=== PATIENT | male | born 1945 | race Caucasian/White ===

== ENCOUNTER → 2018-10-07 | Outpatient (CLI) | payer MEDICARE | END | disposition home or self-care (01) | LOC: PCVCCLINIC 16:02 | PROVIDERS: ATTEND Internal Medicine Cardiovascular Disease | DX: I25.10 Atherosclerotic heart disease of native coronary artery without angina pectoris (principal); E11.8 Type 2 diabetes mellitus with unspecified complications; E78.00 Pure hypercholesterolemia, unspecified; I10 Essential (primary) hypertension; I21.3 ST elevation (STEMI) myocardial infarction of unspecified site; Z91.041 Radiographic dye allergy status | CPT/HCPCS: 36415; 80061; 93005; G0463 ==

== ENCOUNTER → 2018-11-24 | Outpatient (CLI) | payer MEDICARE | END | disposition home or self-care (01) | LOC: PCVCCLINIC 15:23 | PROVIDERS: ATTEND Internal Medicine Cardiovascular Disease | DX: I25.10 Atherosclerotic heart disease of native coronary artery without angina pectoris (principal); E78.5 Hyperlipidemia, unspecified; I24.9 Acute ischemic heart disease, unspecified; E11.9 Type 2 diabetes mellitus without complications; Z79.4 Long term (current) use of insulin; I10 Essential (primary) hypertension; R60.9 Edema, unspecified; Z79.899 Other long term (current) drug therapy; Z88.8 Allergy status to other drugs, medicaments and biological substances | CPT/HCPCS: 36415; 80061; 93005; G0463 ==

== ENCOUNTER → 2019-03-05 | Outpatient (CLI) | payer MEDICARE ==
[~2019-03-05] MED LIST: REGADENOSON 0.4 MG/5 ML DISP.SYRIN. IV ONE
--- NOTE | 2019-03-05 12:43 | PCVCIMAG ---
APPROVED REPORT Study performed: 03/05/2019 07:47:13 EXAM: Comprehensive 2D, Doppler, and color-flow Echocardiogram Patient Location: Echo lab Status: routine BSA: 2.73 HR: 71 bpmBP: 116/64 mmHg Rhythm: NSR Other Information Study Quality: Fair Technically limited study due to lung disease and body habitus. Risk Factors: Cardiac Risk Factors: HTN Indications Diabetes CAD obesity, inferior NM 2D Dimensions IVSd: 13.73 (7-11mm) LVDd: 41.03 mm PWd: 13.33 (7-11mm) LVDs: 30.81 (25-40mm) Left Atrium: 44.98 (27-40mm) Aortic Root: 35.63 mm LV Single Plane 4CH: 50.31 % LV Single Plane 2CH: 49.49 % Biplane EF: 50.4 % Volumes Left Atrial Volume (Systole) Single Plane 4CH: 93.18 mLSingle Plane 2CH: 91.14 mL LA ESV Index: 34.00 mL/m2 Aortic Valve AoV Peak Devang.: 1.69 m/s AO Peak Gr.: 11.46 mmHgLVOT Max P.11 mmHg LVOT Max V: 0.83 m/s Mitral Valve E/A Ratio: 1.4 MV Decel. Time: 271.35 ms MV E Max Devang.: 0.79 m/s MV A Devang.: 0.56 m/s IVRT: 117.65 ms Pulmonary Valve PV Peak Devang.: 0.80 m/sPV Peak Gr.: 2.56 mmHg Tricuspid Valve TR Peak Devang.: 2.54 m/s TR Peak Gr.: 25.90 mmHg Left Ventricle The left ventricle is normal size. Mild concentric left ventricular hypertrophy. The left ventricular ejection fraction is within the lower limits of normal range. Basal-mid inferior hypokinesis post inferior NM. LVEF is 50%. Grade I - abnormal relaxation pattern. Right Ventricle The right ventricle is normal size. The right ventricular systolic function is normal. Atria The left atrium size is normal. The right atrium size is normal. Aortic Valve The aortic valve is normal in structure. No aortic regurgitation is present. There is no aortic valvular stenosis. Mitral Valve The mitral valve is normal in structure. There is no mitral valve regurgitation noted. No evidence of mitral valve stenosis. Tricuspid Valve The tricuspid valve is normal in structure. Mild tricuspid regurgitation with PAP of 33 mmHg. Pulmonic Valve The pulmonary valve is normal in structure. There is no pulmonic valvular regurgitation. Great Vessels The aortic root is normal in size. IVC is normal in size and collapses >50% with inspiration. Pericardium There is no pericardial effusion. There is no pleural effusion. <Conclusion> The left ventricle is normal size. The left ventricular ejection fraction is within the lower limits of normal range. Basal-mid inferior hypokinesis post inferior NM. LVEF is 50%. Grade I - abnormal relaxation pattern. The right ventricle is normal size. The left atrium size is normal. The aortic valve is normal in structure. Mild tricuspid regurgitation with PAP of 33 mmHg. The aortic root is normal in size. There is no pericardial effusion.
--- NOTE | 2019-03-05 13:35 | PCVCIMAG ---
APPROVED REPORT Imaging Protocol: Rest Tc-99m/Stress Tc-99m 1 day Study performed: 03/05/2019 08:50:04 Indication: CAD Patient Location: Out-Patient Stress Nurse: Layne Singh RN, Lavern Rojas RN [place] Tech:Crista Zapien [facility] Ht: 6 ft 5 in Wt: 318 lbs BSA: 2.72 m2 HR: 71 bpm BP: 144/63 mmHg BMI: 37.7 Rhythm: Sinus Rhythm Medical History Medical History: HTN, Hyperlipidemia, Former Smoker, MD Medications: Metoprolol, Aspirin, NTG, Brilinta, Diovan, Atorvastatin Allergies: Iodine Cardiac Risk Factors: Age, FHX of CAD Previous Cardiac Procedures: 2018 - MD, 2019 - PCI Pretest Chest Pain Characteristics: No chest pain Meds Held (24 hrs): Metoprolol Resting Data Rest SPECT myocardial perfusion imaging was performed in supine position 45 minutes following the intravenous injection of 13.7 mCi of Tc-99m Sestamibi. Time of rest injection: 844 Date: 03/05/2019 Administration Route: IV Administration Site: Right AC Pharmacologic Stress Pharmacologic stress test was performed by injecting Regadenoson 0.4 mg IV push over 10-15 seconds immediately followed by the intravenous injection of 41.3 mCi of Tc-99m Sestamibi. Time of stress injection: 949 Date: 03/05/2019 Administration Route: IV Administration Site: Right AC Gated Stress SPECT was performed 45 minutes after stress injection. The images were gated to evaluate regional wall motion and calculate left ventricular ejection fraction. Stress Test Details Stress Test: Pharmacologic stress testing performed using 0.4 mg of regadenoson per 5 mL given IV over 10 seconds. Reason for pharmacologic stress test: physical limitation. HRMax Heart Rate (APMHR): 147 bpm Resting HR: 71 bpmTarget HR (85% APMHR): 124 bpm Max HR Achieved: 93 bpm % of APMHR: 63 Recovery HR: 81 bpm BP Resting BP: 144/63 mmHg Max BP: 134/71 mmHg Recovery BP: 147/65 mmHg ECG Resting ECG: Sinus Rhythm Stress ECG: Sinus Rhythm Arrhythmia: PVC's Recovery ECG: Sinus Rhythm Clinical Reason for Termination: Completed protocol Stress Symptoms: Dyspnea, Lightheaded Symptoms resolved with caffeine. Stress ECG Conclusion ECG: Non-ischemic Study Quality Study: Good Study Data Post stress, the left ventricular ejection was 67%.. SSS: 1 SRS: 3 SDS: 0 TID = 0.95. Perfusion No evidence of stress induced ischemia or prior myocardial infarction. Wall Motion Normal left ventricular size and function with no regional wall motion abnormalities. Nuclear Conclusion No evidence of stress induced ischemia or prior myocardial infarction. Normal left ventricular size and function with no regional wall motion abnormalities. Post stress, the left ventricular ejection was 67%. No prior study available for comparison. Interpreted by: Adonis Nair MD Electronically Approved: 03/05/2019 11:45:55 <Conclusion> ECG: Non-ischemic
== END | disposition home or self-care (01) ==
LOC: PCVCIMAG 07:45
PROVIDERS: ATTEND Internal Medicine Cardiovascular Disease
DX: I25.10 Atherosclerotic heart disease of native coronary artery without angina pectoris (principal); E11.9 Type 2 diabetes mellitus without complications; I25.2 Old myocardial infarction; I36.1 Nonrheumatic tricuspid (valve) insufficiency; E66.9 Obesity, unspecified; I24.9 Acute ischemic heart disease, unspecified; I21.19 ST elevation (STEMI) myocardial infarction involving other coronary artery of inferior wall; I11.9 Hypertensive heart disease without heart failure; E78.5 Hyperlipidemia, unspecified; Z91.041 Radiographic dye allergy status; Z87.891 Personal history of nicotine dependence; Z79.82 Long term (current) use of aspirin; Z79.899 Other long term (current) drug therapy; Z79.84 Long term (current) use of oral hypoglycemic drugs; Z72.89 Other problems related to lifestyle
CPT/HCPCS: 78452; 93017; 93306; A9500; G0463; J2785